=== PATIENT | female | born 1995 | race American Indian/Alaskan Native ===

== ENCOUNTER 2021-12-18 19:16 | Emergency (ER) | payer BC ==
[2021-12-18 21:16] VITALS: BP 123/86
[2021-12-18] MEDS ORDERED: ACETAMINOPHEN 325 MG TAB PO STA (22:13)
--- NOTE | 2021-12-18 22:13 | Emergency Department Report ---
ED Female HPI - General Chief complaint: Vaginal Bleeding Stated complaint: Vaginal bleeding for 1 day while Time Seen by Provider: 12/18/21 21:53 Source: patient Mode of arrival: Ambulatory Limitations: No Limitations - History of Present Illness Initial comments: The patient was evaluated in the emergency department for symptoms described in the history of present illness. He/she was evaluated in the context of the global COVID-19 pandemic, which necessitated consideration that the patient might be at risk for infection with the virus that causes COVID-19. Institutional protocols and algorithms that pertain to the evaluation of pat ients at risk for COVID-19 are in a state of rapid change based on information released by regulatory bodies including the CDC and federal and state organizations. These policies and algorithms were followed during the patient's care in the emergency department. Please note that these policies, procedures and recommendations changed on a rapid basis. During the history and physical examination I am chaperoned by android software engineer Hoa Garcia The patient is a 26-year-old female who reports that she is 1, para 0, last menstrual period at the end of October, who does not have a private o utpatient [facility], who presents to the ER today with a complaint of 1 day lower abdominal cramping with vaginal bleeding. No urinary symptoms. No nausea or vomiting. Has not had outpatient care established or had an outpatient ultrasound. She denies additional injuries and complaints. Patient reports she has used 2 pads since 4:00 PM this afternoon. It is currently 10: 50 p.m. Complaint: vaginal bleeding -: This afternoon Location: suprapubic Radiation: non-radiating Severity: mild Quality: cramping Consistency: intermittent Improves with: none Worsens with: none Are you Now?: Yes Associated Symptoms: denies other symptoms, vaginal bleeding - Related Data Sexually active: Yes Previous Rx's Medication Instructions Recorded Last Taken Type Acetaminophen [Non-Aspirin Extra 500 mg PO Q6HR PRN #30 tablet 12/18/21 Unknown Rx Strength] Doxylamine Succinate/Vit B6 1 each PO QHS PRN #30 tablet. 12/18/21 Unknown Rx [Natalia Oconnor 10-10 mg Tablet] Dorota Root [Dorota] 250 mg PO QID PRN #30 capsule 12/18/21 Unknown Rx Vit-Fe Fumar-FA [ 1 tab PO QDAY #30 tablet 12/18/21 Unknown Rx Vitamin] Allergies Allergy/AdvReac Type Severity Reaction Status Date / Time No Known Allergies Allergy Unverified 12/18/21 21:14 ED Review of Systems ROS: Stated complaint: ABD PAIN X 1 MONTH PREG Other details as noted in HPI Comment: All other systems reviewed and negative Gastrointestinal: as per HPI Genitourinary: abnormal menses. denies: dysuria Psychiatric: anxiety Hematological/Lymphatic: denies: easy bleeding ED Past Medical Hx - Past Medical History Previous Medical History?: No - Surgical History Past Surgical History?: No - Medications Home Medications: Home Medications Medication Instructions Recorded Confirmed Last Taken Type Acetaminophen [Non-Aspirin Extra 500 mg PO Q6HR PRN #30 tablet 12/18/21 Unknown Rx Strength] Doxylamine Succinate/Vit B6 1 each PO QHS PRN #30 tablet. 12/18/21 Unknown Rx [Natalia Dr 10-10 mg Tablet] Dorota Root [Dorota] 250 mg PO QID PRN #30 capsule 12/18/21 Unknown Rx Vit-Fe Fumar-FA [ 1 tab PO QDAY #30 tablet 12/18/21 Unknown Rx Vitamin] ED Physical Exam - General Limitations: No Limitations General appearance: alert, anxious - Head Head exam: Present: atraumatic, normocephalic - Eye Eye exam: Present: normal appearance, EOMI. Absent: nystagmus - ENT ENT exam: Present: normal exam, normal orophraynx, mucous membranes moist, normal external ear exam - Neck Neck exam: Present: normal inspection, full ROM. Absent: tenderness, meningismus - Respiratory Respiratory exam: Present: normal lung sounds bilaterally. Absent: respiratory distress, wheezes, rales, rhonchi, stridor, decreased breath sounds - Cardiovascular Cardiovascular Exam: Present: regular rate, normal rhythm, normal heart sounds. Absent: bradycardia, tachycardia, irregular rhythm, systolic murmur, diastolic murmur, rubs, gallop - GI/Abdominal GI/Abdominal exam: Present: soft. Absent: distended, tenderness, guarding, rebound, rigid, pulsatile mass - External exam: Present: normal external exam, bleeding, other (Chaperoned by Hoa Gardner) - Extremities Exam Extremities exam: Present: normal inspection, full ROM, other (2+ pulses noted in the bilateral upper and lower extremities. There is no palpable cord. negative Homans sign. Muscular compartments are soft. The pelvis is stable.). Absent: pedal edema, calf tenderness - Back Exam Back exam: Present: normal inspection, full ROM. Absent: tenderness, CVA tenderness (R), CVA tenderness (L), paraspinal tenderness, vertebral tenderness - Neurological Exam Neurological exam: Present: alert, normal gait, other (No facial droop. Tongue midline. Extraocular movements intact bilaterally. Facial sensation intact to light touch in V1, V2, V3 distribution bilaterally. 5 and a 5 strength in 4 extremities. Sensation intact to light touch in 4 extremities.). Absent: motor sensory deficit - Psychiatric Psychiatric exam: Present: anxious - Skin Skin exam: Present: warm, dry, intact, normal color. Absent: rash ED Course Vital Signs 12/18/21 12/19/21 21:14 02:23 Temperature 99 F Pulse Rate 65 Respiratory 14 16 Rate Blood Pressure 123/86 [Right] O2 Sat by Pulse 100 Oximetry - Reevaluation(s) Reevaluation #1: 12/18/21 22:52 Differential diagnosis, including but not limited to: Miscarriage, menstruation, bacteriuria, ectopic Assessment and plan: 26-year-old female, who is afebrile, with reassuring vital signs, presenting with reported vaginal bleeding while . Abdomen soft and benign. No rebound, guarding or peritoneal signs. Scant vaginal bleeding noted at the vault. Denies irritative and obstructive urinary symptoms. Suspect miscarriage. Counseled patient as such. Check appropriate laboratory studies, urinalysis, type and screen, obtain obstetrics ultrasound, administer Tylenol, reassess. Discussed plan of care with patient. She is agreeable to the plan of care. 12/19/21 01:48 Patient is resting comfortably in stretcher. Have called the certified cytotechnologist. The certified cytotechnologist was in labor and delivery performing studies over there. special procedure technologist that this patient should be to have her ultrasound shortly. Patient is updated. 12/19/21 03:12 Patient had a very prolonged stay here in the emergency room because it took a very long time for her ultrasound to be performed. There is no left lower quadrant tenderness, rebound or guarding, therefore, I do not suspect ectopic , or ovarian torsion. Pelvic ultrasound did not demonstrate an intrauterine or any significant findings. Quant hCG slightly greater than 8. Pelvic rest, bleeding precautions, follow-up in 2 days for repeat quant hCG and physical examination. Discussed this with the patient. All questions answered. Return precautions reviewed. ED Medical Decision Making - Lab Data Result diagrams: 12/18/21 22:34 Vital Signs 12/18/21 21:14 Temperature 99 F Pulse Rate 65 Respiratory 14 Rate Blood Pressure 123/86 [Right] O2 Sat by Pulse 100 Oximetry - Radiology Data Radiology results: pending, report reviewed, image reviewed US OB <= 14 weeks fetus, US OB transvaginal INDICATION / CLINICAL INFORMATION: Lower abdominal pain, , vaginal bleeding. COMPARISON: None available. FINDINGS: Uterus measures 6.1 cm in length. There is a pedunculated exophytic uterine fibroid which measures 2.6 cm in maximum diameter. The endometrial echo complex measures 7-8 mm. No endometrial fluid collections are seen. Right ovary is unremarkable. Left ovary is not visualized. No free fluid. No adnexal lesions are seen. IMPRESSION: 1. No sonographic evidence of intrauterine . No adnexal lesions or free fluid. 2. Pedunculated uterine fibroid. Signer Name: Jurgen Rose MD Signed: 12/19/2021 2:13 AM Critical care attestation.: If time is entered above; I have spent that time in minutes in the direct care of this critically ill patient, excluding procedure time. ED Disposition Clinical Impression: Vaginal bleeding, Elevated serum hCG, Fibroid Disposition: 01 HOME / SELF CARE / HOMELESS Is pt being admited?: No Does the pt Need Aspirin: No Condition: Good Instructions: Miscarriage, [id number], Abnormal Uterine Bleeding Additional Instructions: Patient needs to follow-up in 2 days for repeat physical examination, and quantitative hCG/ test. Patient's hCG today was 8. 1 4. Diagnostic considerations include early miscarriage, early , and early ectopic . The patient should follow-up in the emergency room, or with an outpatient [facility] in 2 days for repeat checkup and evaluation. Patient should avoid heavy lifting and strenuous physical activity, and avoid sex/sexual activity. Patient may take [id number] Tylenol as needed for physical pain, but should not take Motrin or ibuprofen. For the patient's convenience, some local [facility] doctors have been listed that she may follow-up with. Please return to the emergency room right away with new pain, worsened pain, migration of pain, projectile vomiting, change in mental status, confusion, inability tolerate liquid feeds, new, worsened or different symptoms not present on the initial emergency room evaluation Prescriptions: Doxylamine Succinate/Vit B6 [Natalia Oconnor 10-10 mg Tablet] 1 each PO QHS PRN #30 tablet. PRN Reason: Nausea Dorota Root [Dorota] 250 mg PO QID PRN #30 capsule PRN Reason: Nausea Acetaminophen [Non-Aspirin Extra Strength] 500 mg PO Q6HR PRN #30 tablet PRN Reason: Pain , Severe (7-10) Vit-Fe Fumar-FA [ Vitamin] 1 tab PO QDAY #30 tablet Referrals: [facility] [Provider Group] - 3-5 Days [facility] [Provider Group] - 3-5 Days [facility] [Provider Group] - 3-5 Days
[2021-12-18 22:57] LABS: Basophils % (Auto) 0.5 % (0.0-1.8); Eosinophils # (Auto) 0.2 K/mm3 (0.0-0.4); Eosinophils % (Auto) 2.7 % (0.0-4.3); Hemoglobin 13.8 gm/dl (10.1-14.3); Lymphocytes # (Auto) 2.4 K/mm3 (1.2-5.4); Lymphocytes % (Auto) 32.9 % (13.4-35.0); Mean Corpuscular HGB Conc 33 % (30-34); Mean Corpuscular Volume 93 fl (79-97); Monocytes # (Auto) 0.4 K/mm3 (0.0-0.8); Monocytes % (Auto) 5.7 % (0.0-7.3); Platelet Count 230 K/mm3 (140-440); Red Blood Count 4.54 M/mm3 (3.65-5.03); Red Cell Distribution Width 13.3 % (13.2-15.2)
[2021-12-19 00:37] LABS: Mucus,Urine 3+ /HPF
[2021-12-19 00:44] LABS: RBC,Urine > 182.0 /HPF (0.0-6.0)
[2021-12-19 00:46] LABS: Bilirubin,Urine Negative (Negative); Blood,Urine Trace (Negative); Color,Urine Yellow (Yellow); Urobilinogen,Urine < 2.0 mg/dL (<2.0)
--- NOTE | 2021-12-19 03:17 | Ultrasound Report ---
US OB <= 14 weeks fetus, US OB transvaginal INDICATION / CLINICAL INFORMATION: Lower abdominal pain, , vaginal bleeding. COMPARISON: None available. FINDINGS: Uterus measures 6.1 cm in length. There is a pedunculated exophytic uterine fibroid which measures 2. 6 cm in maximum diameter. The endometrial echo complex measures 7-8 mm. No endometrial fluid collecti ons are seen. Right ovary is unremarkable. Left ovary is not visualized. No free fluid. No adnexal lesions are seen. IMPRESSION: 1. No sonographic evidence of intrauterine . No adnexal lesions or free fluid. 2. Pedunculated uterine fibroid. Signer Name: Jurgen Rose MD Signed: 12/19/2021 3:13 AM Workstation Name: [id number]
== END 2021-12-19 03:58 | disposition home or self-care (01) ==
LOC: ED 19:16
DX: O46.91 Antepartum hemorrhage, unspecified, first trimester (principal); O02.81 Inappropriate change in quantitative human chorionic gonadotropin (hCG) in early pregnancy; O34.10 Maternal care for benign tumor of corpus uteri, unspecified trimester; Z3A.14 14 weeks gestation of pregnancy
CPT/HCPCS: 36415; 76801; 76817; 81001; 84702; 85025; 86850; 86900; 86901; 99284